=== PATIENT | female | born 1975 | race Caucasian/White ===

== ENCOUNTER 2019-07-22 14:02 | Outpatient (CLI) | payer BC ==
--- NOTE | 2019-07-22 14:30 | RAD ---
LUMBAR SPINE 2 VIEWS: HISTORY: Low back pain. FINDINGS/IMPRESSION: There is grade I anterolisthesis of L5 over S1. No acute fracture or bony destruction is seen. POS: [facility]ANA
== END 2019-07-22 14:03 | disposition home or self-care (01) ==
LOC: TBSIIMAG 14:02
PROVIDERS: ATTEND Surgery
DX: M54.5 Low back pain (principal); M43.17 Spondylolisthesis, lumbosacral region
CPT/HCPCS: 72100

== ENCOUNTER 2023-07-06 09:14 | Outpatient (CLI) | payer BC | END 2023-07-06 09:15 | disposition home or self-care (01) | LOC: BICMAMMO 09:14 | PROVIDERS: ATTEND Obstetrics & Gynecology | DX: N63.20 Unspecified lump in the left breast, unspecified quadrant (principal) | CPT/HCPCS: 77066; G0279 ==